=== PATIENT | female | born 1940 | race Caucasian/White ===

== ENCOUNTER 2017-03-13 09:35 | Emergency (ER) | payer OTHER ==
[~2017-03-13] VITALS: Ht 162.6 cm; Wt 61.7 kg
[~2017-03-13 09:35] MED LIST: CELEBREX200 MG PO; CELEBREX50 MG PO; COLACE100 MG PO; DIOVAN40 MG PO; FLOVENT DISKUS1 DIS2 IH; FLUOXETINE HCL20 MG PO; INDOCIN25 MG PO; LYRICA150 MG PO; LYRICA25 MG PO; OXYCONTIN10 MG PO; OXYCONTIN40 MG PO; PROTONIX40 MG PO; SYNTHROID50 MCG PO; TOPROL XL6.25 MG PO; VESICARE5 MG PO; VITAMIN D35000 UNIT PO; ZESTORETIC 20-1 EAC1 NG; Zofran PO
[2017-03-13 10:21] LABS: HEMATOCRIT 37.7 % (36.0-46.0); MCH 29.8 PG (29.0-34.0); MCHC 33.7 G/DL (30.0-36.0); MCV 88.5 FL (83-99); MEAN PLAT.VOLUME 10.7 uM^3 (9.5-12.4); PLATELET COUNT 227 K/uL (156-360); RBC DIS.WIDTH-CV 13.7 % (11.8-14.6); RBC DIS.WIDTH-SD 44.2 % (39-53); RED BLOOD COUNT 4.26 M/uL (3.80-5.20); WHITE BLOOD COUNT 6.8 K/uL (4.1-10.2)
[2017-03-13 10:34] LABS: CHLORIDE 101 mEq/L (99-109); POTASSIUM 3.6 mEq/L (3.7-5.4); SODIUM 139 mEq/L (136-147)
[2017-03-13 10:36] LABS: GLUCOSE 104 mg/dL (70-99)
[2017-03-13 10:38] LABS: ANION GAP 7 MEQ/L (2-14)
[2017-03-13 10:40] LABS: GFR ESTIMATE (CALCULATED) > 59 mL/min/
[2017-03-13 10:41] LABS: UREA NITROGEN (BUN) 16 mg/dL (9-23)
[2017-03-13 10:43] LABS: TROP-I INTERPRETATION NEGATIVE; TROPONIN-I < 0.01 ng/mL (0.0-0.30)
[2017-03-13 11:17] LABS: ADD MIUA? YES; BILIRUBIN NEGATIVE; BLOOD SMALL; COLOR YELLOW ((YELLOW)); GLUCOSE (STRIP) NEGATIVE; KETONES NEGATIVE; LEUKOCYTES LARGE; NITRITE POSITIVE; PROTEIN (STRIP) NEGATIVE; UROBILINOGEN 0.2 MG/DL (0.2-1.0)
[2017-03-13 11:31] LABS: BACTERIA NONE SEEN /HPF; BUDDING YEAST 2+; EPITHELIAL CELLS NONE SEEN /HPF; MUCUS TRACE /LPF; RED BLOOD CELLS 0-5 /HPF (0-5); UCUL ADDED? NO; WHITE BLOOD CELLS 40-50 /HPF (0-5)
[2017-03-13] MEDS ORDERED: KEFLEX500 MG PO (13:42)
[2017-03-13 13:58] VITALS: BP 182/78
== END 2017-03-13 14:01 | disposition home or self-care (01) ==
LOC: EME 09:35
PROVIDERS: Emergency Medicine
PROC: 0HQ0XZZ Repair Scalp Skin, External Approach (ICD-10-PCS; principal; 2017-03-13)
DX: N39.0 Urinary tract infection, site not specified (principal); S01.01XA Laceration without foreign body of scalp, initial encounter; W01.198A Fall on same level from slipping, tripping and stumbling with subsequent striking against other object, initial encounter; I10 Essential (primary) hypertension; G89.29 Other chronic pain; M79.7 Fibromyalgia; M41.9 Scoliosis, unspecified
CPT/HCPCS: 70450; 71010; 80048; 81003; 84484; 85027; 93005; 99281; 99285

== ENCOUNTER 2017-04-15 10:01 | Emergency (ER) | payer OTHER ==
[~2017-04-15] VITALS: Ht 149.9 cm; Wt 62.3 kg
[~2017-04-15 10:01] MED LIST changes: +KEFLEX500 MG PO
[2017-04-15 11:47] VITALS: BP 147/67
== END 2017-04-15 11:48 | disposition home or self-care (01) ==
LOC: EME 10:01
DX: S01.112A Laceration without foreign body of left eyelid and periocular area, initial encounter (principal); S09.90XA Unspecified injury of head, initial encounter; M54.2 Cervicalgia; W01.0XXA Fall on same level from slipping, tripping and stumbling without subsequent striking against object, initial encounter; I10 Essential (primary) hypertension
CPT/HCPCS: 70450; 72125; 99281; 99285

== ENCOUNTER 2017-09-11 10:21 | Observation (INO) | payer OTHER ==
[~2017-09-11] VITALS: Ht 149.9 cm; Wt 63.3 kg
[~2017-09-11 10:21] MED LIST changes: -FLUOXETINE HCL20 MG PO; +FLUOXETINE HCL40 MG PO; -OXYCONTIN10 MG PO; +OXYCONTIN20 MG PO; +TOPROL XL100 MG PO; -TOPROL XL6.25 MG PO; -ZESTORETIC 20-1 EAC1 NG; +ZESTORETIC 20-1 EAC1 PO
[2017-09-11 12:37] LABS: MEAN PLAT.VOLUME 10.5 uM^3 (9.5-12.4); PLATELET COUNT 119 K/uL (156-360)
[2017-09-11 12:41] LABS: HEMATOCRIT 30.6 % (36.0-46.0); MCH 29.2 PG (29.0-34.0); MCV 88.4 FL (83-99); RBC DIS.WIDTH-CV 14.9 % (11.8-14.6); RBC DIS.WIDTH-SD 48.2 % (39-53); RED BLOOD COUNT 3.46 M/uL (3.80-5.20)
[2017-09-11 12:42] LABS: WHITE BLOOD COUNT 34.9 K/uL (4.1-10.2)
[2017-09-11 12:49] LABS: CHLORIDE 104 mEq/L (99-109); POTASSIUM 3.8 mEq/L (3.7-5.4); SODIUM 140 mEq/L (136-147)
[2017-09-11 12:50] LABS: GLUCOSE 139 mg/dL (70-99)
[2017-09-11 12:52] LABS: ANION GAP 7 MEQ/L (2-14)
[2017-09-11 12:54] LABS: GFR ESTIMATE (CALCULATED) > 59 mL/min/
[2017-09-11 12:55] LABS: UREA NITROGEN (BUN) 18 mg/dL (9-23)
[2017-09-11 14:28] LABS: ABS NEUTROPHIL COUNT 6.1; EOSINOPHIL ABS CT 0.1; EOSINOPHILS 0.4 % (0-5.0); INSTRUMENT ABS NEUTROPHIL CT 6.3 K/uL; LYMPHOCYTES 80.8 % (15.0-45.0); SEG.NEUTROPHILS 17.5 % (46.0-76.0); SMUDGE CELLS 2.6
[2017-09-11] MEDS ORDERED: INDOCIN25 MG PO (14:33)
[2017-09-11] MEDS ORDERED: XIIDRA1 EACH BOTH EYES (14:37)
[2017-09-11] MEDS ORDERED: CELECOXIB200 MG PO (14:37)
[2017-09-11] MEDS ORDERED: TOLTERODINE TART4 MG PO (14:37)
[2017-09-11] MEDS ORDERED: OXYCODONE HCL5 MG PO (14:37)
[2017-09-11] MEDS ORDERED: GLUCOSAMINE-CH1 EA44 PO (14:38)
[2017-09-11] MEDS ORDERED: LIDODERM 5% P1 PATCH TD (14:39)
[2017-09-11 16:05] LABS: TOTAL BILIRUBIN 0.4 mg/dL (0.0-1.0)
[2017-09-11 16:06] LABS: ALKALINE PHOSPHATASE 74 IU/L (3-129)
[2017-09-11 16:09] LABS: DIRECT BILIRUBIN 0.2 mg/dL (0.0-0.3)
[2017-09-11 19:47] VITALS: BP 134/66
[2017-09-11 21:26] LABS: HEMATOCRIT 40.3 % (36.0-46.0); MCH 28.9 PG (29.0-34.0); MCHC 32.5 G/DL (30.0-36.0); MCV 88.8 FL (83-99); MEAN PLAT.VOLUME 10.1 uM^3 (9.5-12.4); NRBC (%) 0.1 /100 WBC (0-0); PLATELET COUNT 114 K/uL (156-360); RBC DIS.WIDTH-CV 15.1 % (11.8-14.6); RBC DIS.WIDTH-SD 48.5 % (39-53)
[2017-09-11 21:29] LABS: WHITE BLOOD COUNT 48.7 K/uL (4.1-10.2)
[2017-09-11 21:30] LABS: RED BLOOD COUNT 4.54 M/uL (3.80-5.20)
[2017-09-11 23:35] LABS: ADD MIUA? YES; BILIRUBIN NEGATIVE; BLOOD SMALL; COLOR YELLOW ((YELLOW)); GLUCOSE (STRIP) NEGATIVE; KETONES NEGATIVE; LEUKOCYTES LARGE; NITRITE NEGATIVE; PROTEIN (STRIP) NEGATIVE; SPECIFIC GRAVITY 1.012 (1.000-1.030); UROBILINOGEN 0.2 MG/DL (0.2-1.0)
[2017-09-11 23:48] VITALS: BP 155/70
[2017-09-12 00:30] LABS: WHITE BLOOD CELLS 20-30 /HPF (0-5)
[2017-09-12 00:31] LABS: BACTERIA 3+ /HPF; CASTS NONE SEEN /LPF; CRYSTALS NONE SEEN; EPITHELIAL CELLS NONE SEEN /HPF; MUCUS NONE SEEN /LPF; UCUL ADDED? YES
[2017-09-12 07:07] LABS: HEMATOCRIT 29.4 % (36.0-46.0); MCH 28.4 PG (29.0-34.0); MCHC 32.7 G/DL (30.0-36.0); MEAN PLAT.VOLUME 10.6 uM^3 (9.5-12.4); NRBC (%) 0.1 /100 WBC (0-0); PLATELET COUNT 96 K/uL (156-360); RBC DIS.WIDTH-CV 15.1 % (11.8-14.6); RBC DIS.WIDTH-SD 47.8 % (39-53)
[2017-09-12 07:08] LABS: RED BLOOD COUNT 3.38 M/uL (3.80-5.20); WHITE BLOOD COUNT 33.9 K/uL (4.1-10.2)
[2017-09-12 07:17] LABS: ALKALINE PHOSPHATASE 61 IU/L (3-129); ANION GAP 7 MEQ/L (2-14); CHLORIDE 105 MEQ/L (99-109); GFR ESTIMATE (CALCULATED) > 59 mL/min/; POTASSIUM 3.8 MEQ/L (3.7-5.4); SAMPLE HEMOLYSIS CHECK 0; SAMPLE ICTERIC CHECK 0; SAMPLE LIPEMIA CHECK 0; SODIUM 140 MEQ/L (136-147); TOTAL BILIRUBIN 0.5 MG/DL (0.0-1.0); UREA NITROGEN (BUN) 16 mg/dL (9-23)
[2017-09-12 07:20] LABS: GLUCOSE 90 mg/dL (70-99)
[2017-09-12 07:47] VITALS: BP 128/59
[2017-09-12 08:20] LABS: Estimated Average Glucose 108 mg/dL (70-123); HEMOGLOBIN A1c (GLYCOHEMOGLOB) 5.4 % HGB (Below 5.7)
[2017-09-12 11:32] VITALS: BP 124/58
[2017-09-12 14:52] LABS: MEAN PLAT.VOLUME 10.1 uM^3 (9.5-12.4); PLATELET COUNT 109 K/uL (156-360)
[2017-09-12 14:55] LABS: HEMATOCRIT 29.6 % (36.0-46.0); MCH 28.5 PG (29.0-34.0); MCHC 32.4 G/DL (30.0-36.0); MCV 87.8 FL (83-99); RBC DIS.WIDTH-CV 15.1 % (11.8-14.6); RBC DIS.WIDTH-SD 48.1 % (39-53); RED BLOOD COUNT 3.37 M/uL (3.80-5.20)
[2017-09-12 14:58] LABS: WHITE BLOOD COUNT 40.5 K/uL (4.1-10.2)
[2017-09-12 15:45] VITALS: BP 110/58
[2017-09-12 20:01] VITALS: BP 122/59
[2017-09-13 00:14] VITALS: BP 157/83
[2017-09-13 04:36] VITALS: BP 129/60
[2017-09-13 07:35] VITALS: BP 132/77
[2017-09-13] MEDS ORDERED: LEVOFLOXACIN750 MG PO (09:48)
[2017-09-15 11:44] LABS: Flow Clinical Information R/O LYMPHOMA (()); Flow Number of Markers 22 (()); Flow Spec Viability 99 % (()); Flow Specimen Type PERIPHERAL BLOOD (())
== END 2017-09-13 14:07 | disposition home or self-care (01) ==
LOC: EME 10:21 → EDOF 13:37 → 5SOUTH 13:37 → EDOF 13:37 → ENRESERV 13:58 → 5SOUTH 19:15
PROVIDERS: Emergency Medicine; Hospitalist
PROC: 0HQ0XZZ Repair Scalp Skin, External Approach (ICD-10-PCS; principal; 2017-09-11)
DX: N39.0 Urinary tract infection, site not specified (principal); S01.01XA Laceration without foreign body of scalp, initial encounter; W01.0XXA Fall on same level from slipping, tripping and stumbling without subsequent striking against object, initial encounter; H57.10 Ocular pain, unspecified eye; R51 Headache; R59.1 Generalized enlarged lymph nodes; R53.1 Weakness; I10 Essential (primary) hypertension; G89.29 Other chronic pain; M54.9 Dorsalgia, unspecified; Z87.440 Personal history of urinary (tract) infections; R13.10 Dysphagia, unspecified; M79.7 Fibromyalgia; F32.9 Major depressive disorder, single episode, unspecified; Z79.891 Long term (current) use of opiate analgesic; Z88.0 Allergy status to penicillin; Z91.09 Other allergy status, other than to drugs and biological substances
CPT/HCPCS: 70450; 71010; 71260; 72125; 74177; 80048; 80053; 80076; 81003; 83036; 84439; 84443; 85025; 85027; 87040; 87077; 87086; 87186; 88185 90; 99281; 99285; G0378; G8987 GO CI; G8988 GO CH; G8989 GO CI; J0360; J7030